=== PATIENT | male | born 1990 | race Two or more races ===

== ENCOUNTER 2022-09-14 23:07 | Emergency (ER) | payer OTHER ==
[~2022-09-14] VITALS: Ht 182.9 cm; Wt 95.3 kg
[2022-09-14 23:47] VITALS: BP 124/68
[2022-09-14] MEDS ORDERED: IBUPROFEN 400 MG TABLET ONE (23:50)
[2022-09-14] MEDS ORDERED: CIPR7.5D9 LEFT EAR (23:50)
[2022-09-15] MEDS ORDERED: IBUPROFEN 400 MG TABLET PO ONE
--- NOTE | 2022-09-15 00:08 | NUR ---
Patient discharged to home in stable condition. Written and verbal after care instructions given. Patient verbalizes understanding of instruction.
== END 2022-09-15 00:09 | disposition home or self-care (01) ==
LOC: ER 23:11
DX: H60.92 Unspecified otitis externa, left ear (principal); Z79.899 Other long term (current) drug therapy